=== PATIENT | male | born 1965 | race Caucasian/White ===

== ENCOUNTER → 2017-05-24 | Outpatient (CLI) | payer BC ==
[~2017-05-24] MED LIST: ASPI-482 PO; BUSP5TAB PO; CARV6.252 PO; FERR-26 PO; LISI-334 PO; MULT-208 PO; OMEG-131 PO; PANT40TA5 PO; PSYL0.4C PO; SIMV20TA3 PO; VITA1TAB19 PO
--- NOTE | 2017-05-24 14:31 | EKG ---
[facility] [address] [place] [address] Test Date: 2017-05-24 Test Time: 14:34:10 Pat Name: STEPHANIE GARCIA Department: Room: Gender: [employer] Technician: TERESA : 1965 Requested By: STEPHANIE EVGA Order Number: [id number] Reading MD: Anastasia Tineo Measurements Intervals [place] Rate: 57 P: -90 WI: 112 QRS: 28 QRSD: 96 T: -8 QT: 414 QTc: 406 Interpretive Statements SINUS RHYTHM NORMAL ECG Electronically Signed On 05-27-2017 13:47:56 CDT by Anastasia Tineo
[2017-05-24 15:17] LABS: BASO % 1 % (0-3); EOS % 3 % (0-3); HEMATOCRIT 42.7 % (39.0-53.0); HEMOGLOBIN 14.5 g/dL (13.0-17.5); LYMPH # 1.8 x10^3/uL (1.0-4.8); LYMPH % 36 % (24-48); MEAN CORPUSCULAR HEMOGLOBIN 31 pg (25-35); MEAN CORPUSCULAR HGB CONC 34 g/dL (31-37); MEAN CORPUSCULAR VOLUME 92 fL (79-100); MONO % 5 % (0-9); NEUT % 56 % (31-73); PLATELET COUNT 161 x10^3/uL (140-400); RED BLOOD COUNT 4.67 x10^6/uL (4.30-5.70); RED CELL DISTRIBUTION WIDTH 13.4 % (11.5-14.5); WHITE BLOOD COUNT 5.1 x10^3/uL (4.0-11.0)
[2017-05-24 15:53] LABS: ALBUMIN 3.7 g/dL (3.4-5.0); ALBUMIN/GLOBULIN RATIO 1.2 (1.0-1.7); CALCIUM 9.2 mg/dL (8.5-10.1); GFR 78.8; POTASSIUM 3.9 mmol/L (3.5-5.1); TOTAL BILIRUBIN 0.6 mg/dL (0.2-1.0); TOTAL PROTEIN 6.8 g/dL (6.4-8.2)
== END | disposition home or self-care (01) ==
LOC: SURGPAT 13:39
PROVIDERS: ATTEND Thoracic Surgery (Cardiothoracic Vascular Surgery)
DX: I25.10 Atherosclerotic heart disease of native coronary artery without angina pectoris (principal)
CPT/HCPCS: 36415; 80053; 83036; 85027; 85610; 85730; 87641; 93005

== ENCOUNTER → 2017-06-01 | Outpatient (CLI) | payer BC ==
[~2017-06-01] MED LIST changes: +CHOL10003 PO; +DOCU100C28 PO; +HYDR-2762 PO; +NAPR500T3 PO; +NIAC750T3 PO; +SILD50TA PO
--- NOTE | 2017-06-01 18:10 | RAD ---
APPROVED REPORT Patient Location: IN-PATIENT Indications PRE-OP WITH MARKING Vein Measurements Great Saphenous Small Saphenous RightLeft RightLeft Saph-Fem. Junction 0.53mm0.32mmProximal 0.50mm0.52mm Mid Thigh 0.33mm0.44mmMid 0.23mm0.27mm Distal Thigh 0.28mm0.20mmDistal 0.25mm0.26mm Proximal Calf 0.22mm0.26mm Mid Calf 0.21mm0.00mm Distal Calf 0.23mm0.00mm Findings Anders scale images of the bilateral great and lesser saphenous veins were obtained. The right great saphenous vein appears patent throughout its course with a maximum dimension of 5.3 m m in the proximal aspect. The right lesser saphenous vein is again patent measuring 5 mm proximally a nd tapering down to 2.5 mm distally. No thrombus is noted. The left great saphenous vein measures approximately 4.4 mm in greatest dimension in the proximal thi gh to the knee. Below the knee it is not well visualized. The left lesser saphenous vein again proxim ally measures approximately 5 mm and distally tapers to 2.5 mm. No thrombus is noted. Critical Notification Critical Value: No <Conclusion> 1. Patent bilateral greater and lesser saphenous veins. 2. Of note, the below-knee left great saphenous vein is diminutive.
== END | disposition home or self-care (01) ==
LOC: US 10:15
PROVIDERS: ATTEND Thoracic Surgery (Cardiothoracic Vascular Surgery)
DX: Z01.818 Encounter for other preprocedural examination (principal); I25.10 Atherosclerotic heart disease of native coronary artery without angina pectoris
CPT/HCPCS: 93970

== ENCOUNTER 2017-12-26 01:30 | Emergency (ER) | payer BC, OTHER ==
[2017-12-26] MEDS: PHENAZOPYRIDINE 200 MG TABLET. PO ×2 (02:05)
== END 2017-12-26 02:13 | disposition home or self-care (01) ==
LOC: ER 01:30
DX: Z46.6 Encounter for fitting and adjustment of urinary device (principal); E78.00 Pure hypercholesterolemia, unspecified; I11.9 Hypertensive heart disease without heart failure
CPT/HCPCS: 99284

== ENCOUNTER 2018-05-25 23:27 | Observation (INO) | payer BC, OTHER ==
[2018-05-26 00:47] LABS: ADD MAN DIFF? NO
[2018-05-26] MEDS: ASPIRIN CHEWABLE 81 MG TABLET. PO (00:48)
[2018-05-26] MEDS: LIDO:MAALOX 1:1 20 ML SINGLE DOSE. SWSW (00:48)
[2018-05-26 00:50] LABS: BASO # 0.1 x10^3/uL (0.0-0.2); BASO % 1 % (0-3); EOS # 0.2 x10^3/uL (0.0-0.7); EOS % 4 % (0-3); HEMATOCRIT 43.2 % (39.0-53.0); HEMOGLOBIN 15.1 g/dL (13.0-17.5); LYMPH # 2.1 x10^3/uL (1.0-4.8); LYMPH % 36 % (24-48); MEAN CORPUSCULAR HEMOGLOBIN 31 pg (25-35); MEAN CORPUSCULAR HGB CONC 35 g/dL (31-37); MEAN CORPUSCULAR VOLUME 90 fL (79-100); MONO # 0.4 x10^3/uL (0.0-1.1); MONO % 7 % (0-9); NEUT % 51 % (31-73); PLATELET COUNT 160 x10^3/uL (140-400); RED BLOOD COUNT 4.81 x10^6/uL (4.30-5.70); RED CELL DISTRIBUTION WIDTH 14.2 % (11.5-14.5); WHITE BLOOD COUNT 5.8 x10^3/uL (4.0-11.0)
[2018-05-26 01:04] LABS: ANION GAP 13 (6-14); BLOOD UREA NITROGEN 13 mg/dL (8-26); BUN/CREATININE RATIO 13 (6-20); CALCIUM 8.9 mg/dL (8.5-10.1); CARBON DIOXIDE 23 mmol/L (21-32); CHLORIDE 104 mmol/L (98-107); GFR 78.5; GLUCOSE 114 mg/dL (70-99); POTASSIUM 4.2 mmol/L (3.5-5.1); SODIUM 140 mmol/L (136-145)
[2018-05-26 01:08] LABS: PROTHROMBIN TIME PATIENT 12.7 SEC (11.7-14.0)
[2018-05-26 01:11] LABS: ALBUMIN 3.8 g/dL (3.4-5.0); ALBUMIN/GLOBULIN RATIO 1.3 (1.0-1.7); ALK PHOS 61 U/L (46-116); ALT (SGPT) 34 U/L (16-63); AST (SGOT) 18 U/L (15-37); LIPASE 165 U/L (73-393); TOTAL BILIRUBIN 0.4 mg/dL (0.2-1.0); TOTAL PROTEIN 6.7 g/dL (6.4-8.2)
[2018-05-26 01:12] LABS: TROPONINI 0.051 ng/mL (0.000-0.055)
[2018-05-26 01:30] LABS: NT-PRO BNP 49 pg/mL (0-124)
[2018-05-26 06:44] LABS: TROPONINI 0.052 ng/mL (0.000-0.055)
== END 2018-05-26 12:35 | disposition home or self-care (01) ==
LOC: ER 23:27 → 5 NORTH 05-26 02:10
DX: R07.89 Other chest pain (principal); I25.10 Atherosclerotic heart disease of native coronary artery without angina pectoris; E78.5 Hyperlipidemia, unspecified; I10 Essential (primary) hypertension; Z83.3 Family history of diabetes mellitus; Z95.1 Presence of aortocoronary bypass graft; Z90.49 Acquired absence of other specified parts of digestive tract
CPT/HCPCS: 36415; 71045; 80053; 83690; 83880; 84484; 85025; 85379; 85610; 93005; 99285; G0378; G0379